=== PATIENT | female | born 1955 | race Caucasian/White ===

== ENCOUNTER 2018-11-03 07:41 | Emergency (ER) | payer MEDICAID ==
[~2018-11-03] VITALS: Ht 175.3 cm; Wt 111.1 kg
[2018-11-03 07:56] VITALS: BP 151/72
[2018-11-03] MEDS ORDERED: KETOROLAC TROMETH 60MG/2ML VIAL IM ONE (09:00)
== END 2018-11-03 09:23 | disposition home or self-care (01) ==
LOC: ER 07:41
DX: M10.9 Gout, unspecified (principal); J45.909 Unspecified asthma, uncomplicated; Z88.0 Allergy status to penicillin
CPT/HCPCS: 73130; 96372; 99283; J1885; 10060; 10160